=== PATIENT | male | born 1960 | race Caucasian/White ===

== ENCOUNTER → 2016-10-22 | Outpatient (CLI) | payer BC | LOC: LAB.O 07:57 | PROVIDERS: ATTEND Internal Medicine Nephrology | DX: N18.3 Chronic kidney disease, stage 3 (moderate) (principal); I95.9 Hypotension, unspecified; N17.9 Acute kidney failure, unspecified; E78.5 Hyperlipidemia, unspecified ==

== ENCOUNTER → 2016-11-16 | Outpatient (CLI) | payer BC | END | disposition home or self-care (01) | LOC: LAB.O 07:07 | PROVIDERS: ATTEND Internal Medicine Nephrology | DX: N18.3 Chronic kidney disease, stage 3 (moderate) (principal); E78.5 Hyperlipidemia, unspecified; M10.9 Gout, unspecified ==

== ENCOUNTER → 2017-04-18 | Outpatient (CLI) | payer BC | LOC: LAB.O 07:10 | PROVIDERS: ATTEND Internal Medicine Nephrology | DX: N18.3 Chronic kidney disease, stage 3 (moderate) (principal); E78.5 Hyperlipidemia, unspecified; M10.9 Gout, unspecified ==

== ENCOUNTER → 2017-07-05 | Outpatient (CLI) | payer BC | END | disposition home or self-care (01) | LOC: LAB.O 08:58 | PROVIDERS: ATTEND Specialist | DX: I12.9 Hypertensive chronic kidney disease with stage 1 through stage 4 chronic kidney disease, or unspecified chronic kidney disease (principal); N18.2 Chronic kidney disease, stage 2 (mild); E78.5 Hyperlipidemia, unspecified; M10.9 Gout, unspecified ==

== ENCOUNTER → 2017-10-23 | Outpatient (CLI) | payer BC | LOC: LAB.O 08:11 | PROVIDERS: ATTEND Internal Medicine Nephrology | DX: M10.9 Gout, unspecified (principal); N18.3 Chronic kidney disease, stage 3 (moderate); E78.5 Hyperlipidemia, unspecified ==

== ENCOUNTER → 2017-12-19 | Outpatient (CLI) | payer BC | LOC: LAB.O 07:07 | PROVIDERS: ATTEND Internal Medicine Nephrology | DX: N18.3 Chronic kidney disease, stage 3 (moderate) (principal); E78.5 Hyperlipidemia, unspecified; M10.9 Gout, unspecified; I95.9 Hypotension, unspecified ==

== ENCOUNTER 2018-02-11 22:19 | Inpatient (IN) | payer BC ==
--- NOTE | 2018-02-11 23:01 | ED.PDOC ---
History of Present Illness - General Chief Complaint: Blood Pressure Problem Stated Complaint: low blood pressure Time Seen by Provider: 02/11/18 22:57 Source: patient, Vital Signs reviewed Exam Limitations: no limitations Additional Information: 57 YEAR OLD PRESENTS WITH THE FOLLOWING PROBLEMS SEVERE CRAMPING OF HIS EXTREMITIES HE NOTED HIS BLOOD PRESSURE HAD DROPPED TO THE 70S HE HAS BEEN DRINKING FLUIDS HE HAS BEEN VOIDING NO VOMITNG OR DIARRHEA HE HAS KNOWN HISTORY OF HYPERTENSION ON LISINOPRIL AND CARVIDALOL HE HAS HAD ACUTE KIDNEY INJURY IN 2007 WHERE HIS CR WENAT UP TO 14 HIS BASELINE IS 1.6 - History of Present Illness Timing/Duration: 4-6 hours Severity: moderate Improving Factors: nothing Worsening Factors: nothing Associated Symptoms: denies symptoms Allergies/Adverse Reactions: Allergies Penicillins Allergy (Verified 03/11/15 16:39) Home Medications: Ambulatory Orders Amlodipine Besylate [Norvasc] 10 mg PO BEDTIME 03/11/15 Carvedilol 6.25 mg PO BID 03/11/15 Hctz 25 mg/Triamterene 37.5 mg [Maxzide-25] 1 ea PO DAILY 03/11/15 Lisinopril 40 mg PO BEDTIME 03/11/15 Pantoprazole Tablet [Protonix] 40 mg PO BEDTIME 03/11/15 Rosuvastatin Calcium [Crestor] 40 mg PO DAILY 03/11/15 Review of Systems - Review of Systems Constitutional: States: no symptoms reported, see HPI EENTM: States: no symptoms reported Respiratory: States: no symptoms reported Cardiology: States: no symptoms reported Gastrointestinal/Abdominal: States: no symptoms reported Genitourinary: States: no symptoms reported Musculoskeletal: States: no symptoms reported Skin: States: no symptoms reported Neurological: States: no symptoms reported Endocrine: States: no symptoms reported Hematologic/Lymphatic: States: no symptoms reported Past Medical History (General) - Patient Medical History Hx Seizures: No Hx Stroke: No Hx Dementia: No Hx Asthma: No Hx of COPD: No Hx Cardiac Disorders: No Hx Congestive Heart Failure: No Hx Pacemaker: No Hx Hypertension: Yes Hx Thyroid Disease: No Hx Diabetes: No Hx Renal Disease: Yes - left kidney failing at 17-18% Hx Cancer: No Hx of HIV: No Hx Hepatitis C: No Hx MRSA: No Surgical History: tonsillectomy - Vaccination History Hx Tetanus, Diphtheria Vaccination: No Hx Influenza Vaccination: No Hx Pneumococcal Vaccination: No - Social History Hx Tobacco Use: Yes Hx Alcohol Use: Yes Hx Substance Use: No Hx Substance Use Treatment: No Hx Depression: No Hx Physical Abuse: No Hx Emotional Abuse: No Hx Suspected Abuse: No - Female History Patient : No Family Medical History - Family History Father Hx Family Hypertension: Yes - Mother Hx Family Stroke: Yes - Mother had several TIA's Hx Family Cancer: Yes - father of Melonoma Physical Exam - Physical Exam General Appearance: Alert, Comfortable Eye Exam: bilateral normal Ears, Nose, Throat: hearing grossly normal, normal ENT inspection, normal pharynx Neck: non-tender, full range of motion, supple Cardiovascular/Chest: normal peripheral pulses, regular rate, rhythm, no edema, no gallop Peripheral Pulses: radial,right: 2+, radial,left: 2+, femoral,right: 2+, femoral ,left: 2+, popliteal,right: 2+, popliteal,left: 2+ Gastrointestinal/Abdominal: normal bowel sounds, non tender, soft, no organomegaly, no pulsatile mass Back Exam: normal inspection, no CVA tenderness, no vertebral tenderness Extremity: normal range of motion, non-tender, normal inspection 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, no motor/sensory deficits, alert, normal mood/affect DTR: 3+: Biceps, left, Biceps, right, Triceps, left, Triceps, right, Brachioradialis, left, Brachioradialis, right, Achilles, left, Achilles, right, Patellar, left, Patellar, right Skin Exam: normal color Progress - Results/Orders Results/Orders: Laboratory Tests 02/11/18 02/11/18 02/11/18 23:15 23:15 23:15 WBC 6.3 RBC 4.66 L Hgb 14.9 Hct 43.9 MCV 94.2 H MCH 31.9 H MCHC 34.1 RDW 13.5 Plt Count 210 MPV 7.6 Absolute Neuts (auto) 4.10 Absolute Lymphs (auto) 0.90 L Absolute Monos (auto) 1.20 H Absolute Eos (auto) 0.00 Absolute Basos (auto) 0.00 Neutrophils % 66.0 Lymphocytes % 14.4 L Monocytes % 18.8 H Eosinophils % 0.7 L Basophils % 0.1 Sodium 130 L Potassium 3.8 Chloride 93 L Carbon Dioxide 22 Anion Gap 18.8 H BUN 55 H Creatinine 3.95 H BUN/Creatinine Ratio 13.9 Random Glucose 93 Serum Osmolality 275.6 Calcium 9.6 Total Bilirubin 0.5 AST 47 H ALT 20 Alkaline Phosphatase 50 Serum Total Protein 7.9 Albumin 4.7 Globulin 3.2 Albumin/Globulin Ratio 1.5 Urine Color Yellow Urine Appearance Clear Urine pH 5.0 Ur Specific [place] 1.015 Urine Protein 30 Urine Glucose (UA) Negative Urine Ketones Trace Urine Blood Small H Urine Nitrite Negative Urine Bilirubin Small H Urine Urobilinogen 0.2 Ur Leukocyte Esterase Negative Urine RBC 0-1 Urine WBC 3-5 H Ur Epithelial Cells 0 Urine Bacteria 1+ Hyaline Casts 5-10 Fine Granular Casts 1-3 Urine Mucus Small Departure - Departure Clinical Impression: Dehydration, Hypertension, Acute kidney injury (nontraumatic) Time of Disposition: 23:48 - DISCUSSED WITH [employer] [facility] WORKER WILL ADMIT Disposition: Admit Patient Departure Forms: ED Discharge - Pt. Copy, Patient Portal Self Enrollment Instructions: DI for High Blood Pressure Referrals: DONELL SALGADO MD [Primary Care Provider] - 1-2 Weeks Home Medications: Ambulatory Orders Amlodipine Besylate [Norvasc] 10 mg PO BEDTIME 03/11/15 Carvedilol 6.25 mg PO BID 03/11/15 Hctz 25 mg/Triamterene 37.5 mg [Maxzide-25] 1 ea PO DAILY 03/11/15 Lisinopril 40 mg PO BEDTIME 03/11/15 Pantoprazole Tablet [Protonix] 40 mg PO BEDTIME 03/11/15 Rosuvastatin Calcium [Crestor] 40 mg PO DAILY 03/11/15
[2018-02-11] MEDS ORDERED: SODIUM CHLORIDE 0.9% 1000ML 1,000 ML IVS ONE (23:04)
--- NOTE | 2018-02-12 00:12 | HP ---
SUPERVISING PHYSICIAN: Nicolas Gama MD CHIEF COMPLAINT: Dehydration, leg cramping. HISTORY OF PRESENT ILLNESS: This is a 57-year-old male patient who works for the [employer]. 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 He gets dehydrated easily and does have some renal insufficiency with a baseline creatinine of 1.6. He came to the Emergency Room due to severe cramping of the extremities. His blood pressure prior to coming to the Emergency Room was systolic blood pressure in the 70s. He had been drinking fluids and there were no complaints of nausea and vomiting, but he continued to have dry mouth and difficulty walking due to the cramping. In the Emergency Room, his initial WBCs were 6.3 with hemoglobin 14.9 and hematocrit 43.9. Sodium 130, potassium 3.8, chloride 93, carbon dioxide 22, BUN 55, creatinine 3.95. AST slightly elevated at 47. Urinalysis showed small amount of urine blood, small amount of urine bilirubin and 3 to 5 urine WBCs. He was started on fluids and admitted to the hospital. PAST MEDICAL HISTORY: 1. Hypertension. 2. Gastroesophageal reflux disease. 3. Hiatal hernia. 4. Chronic renal insufficiency. Left kidney is functioning at about 17%. 5. Hypothyroidism. 6. B12 deficiency. PAST SURGICAL HISTORY: 1. Tonsillectomy. OUTPATIENT MEDICATIONS: 1. Carvedilol. 2. Vitamin D3. 3. Lisinopril. 4. Pantoprazole. 5. Crestor. ALLERGIES: PENICILLIN. ADVERSE REACTION TO AMLODIPINE. SOCIAL HISTORY: He lives in [place]. He denies tobacco use. He drinks alcohol on a social basis and denies any illicit drug use. REVIEW OF SYSTEMS: GENERAL: Denies for fever, fatigue or weight changes. HEENT: Denies sinus symptoms, ear pain, vision disturbances or sore throat. He does complain of a dry mount that is improved. RESPIRATORY: Denies for wheezing, coughing or shortness of breath. CARDIAC: Denies for chest pain, palpitations or tachycardia. GASTROINTESTINAL: Denies nausea, vomiting, diarrhea, constipation or abdominal pain. GENITOURINARY: Denies hematuria, dysuria or polyuria. MUSCULOSKELETAL: On admission to the Emergency Room , he had severe leg cramping , but those have resolved with fluids. NEUROLOGIC: Denies headache, dizziness or seizures. PHYSICAL EXAMINATION: VITAL SIGNS: Afebrile. Heart rate 68. Blood pressure 106/63. Respiratory rate 16. O2 saturation 96% on room air. GENERAL: This is a 57-year-old male patient who is lying in his hospital bed. He is in no acute distress. HEENT: Normocephalic, atraumatic. Pupils are equal and reactive. Oropharynx is moist. NECK: Supple without mass. RESPIRATORY: Essentially clear to auscultation bilaterally. CHEST: There is equal rise and fall of the chest with inspiration and expiration. CARDIOVASCULAR: Regular rate and rhythm. GASTROINTESTINAL: Abdomen is soft, nondistended, nontender. Bowel sounds are positive. EXTREMITIES: No cyanosis, clubbing or edema. NEUROLOGIC: Awake, alert and oriented times three. LABORATORY: Labs are as per history of present illness. ASSESSMENT: 1. Acute kidney injury on chronic renal insufficiency. 2. Dehydration. 3. Hypertension. 4. Hyperlipidemia. 5. Gastroesophageal reflux disease. 6. Hypothyroidism. PLAN: We will admit the patient to the hospital. He has received several liters of fluids and he is now on maintenance fluids. His creatinine is still quite elevated at 2.4. I will repeat his labs in the morning. I have also given him some magnesium supplementation. I spoke to the patient's revolving inventory clerk , Dr. Aury Irving in [place] at the [facility] and he agreed with me that the patient's lisinopril should probably be changed. Initially I was going to change him to amlodipine, but he has had an adverse reaction to that in the past, so I am going to start him on an ARB and we will monitor his blood pressure overnight. We will continue with fluids. I will check his thyroid and we will continue to monitor the patient closely and follow as needed. Dr. Gama is the collaborating physician and available for consultation. #[id number] [facility]
[2018-02-12] MEDS ORDERED: SODIUM CHLORIDE 0.9% (FLUSH) 10 ML SYG IV PRN (01:19)
[2018-02-12] MEDS ORDERED: ACETAMINOPHEN 325 MG TAB PO PRN (01:19)
[2018-02-12] MEDS ORDERED: SODIUM CHLORIDE 0.9% 1000ML 1,000 ML IVS ONE (01:26)
[2018-02-12] MEDS ORDERED: IV SET AND CAP CHANGE INJ INJ SCH (01:30)
[2018-02-12] MEDS: KCL 20 MEQ/NS 1,000 ML IVS PRN ×2 (03:10→09:57)
[2018-02-12] MEDS ORDERED: LISINOPRIL 10 MG TAB PO SCH (09:00)
[2018-02-12] MEDS ORDERED: CHOLECALCIFEROL 400 UNIT PO SCH (09:00)
[2018-02-12] MEDS ORDERED: NON-FORMULARY MEDICATION 1 EA MIS (Rosuvastatin Calcium [Crestor] 40 MG) PO SCH (09:00)
[2018-02-12] MEDS: CARVEDILOL 3.125 MG TAB PO SCH (09:44)
[2018-02-12] MEDS: CHOLECALCIFEROL 2,000 IU TAB PO SCH (09:44)
[2018-02-12] MEDS ORDERED: amLODIPine BESYLATE 5 MG TAB PO SCH (11:00)
[2018-02-12] MEDS ORDERED: MAGNESIUM SULFATE PREMIX 2GM 2 GM in PREMIX BAG 1 BAG IVPB ONE (11:00)
[2018-02-12] MEDS ORDERED: MAGNESIUM SULFATE PREMIX 2GM 50 ML IVPB ONE (11:27)
[2018-02-12] MEDS: SODIUM CHLORIDE 0.45% 1000ML 1,000 ML IVS PRN ×2 (11:31→20:14)
[2018-02-12] MEDS: VALSARTAN 80 MG TAB PO SCH (11:35)
[2018-02-12] MEDS ORDERED: ATORVASTATIN 20 MG TAB PO SCH (21:00)
[2018-02-12] MEDS ORDERED: PANTOPRAZOLE SODIUM TAB 40 MG PO SCH (21:00)
[2018-02-13] MEDS: SODIUM CHLORIDE 0.45% 1000ML 1,000 ML IVS PRN (05:08)
[2018-02-13] MEDS: CHOLECALCIFEROL 2,000 IU TAB PO SCH (09:34)
[2018-02-13] MEDS: VALSARTAN 80 MG TAB PO SCH (09:34)
[2018-02-13] MEDS: CARVEDILOL 3.125 MG TAB PO SCH (09:34)
--- NOTE | 2018-02-13 09:49 | DS ---
SUPERVISING PHYSICIAN: Nicolas Gama MD DISCHARGE DIAGNOSIS: 1. Acute kidney injury on chronic renal insufficiency. 2. Dehydration. 3. Hypertension. 4. Hyperlipidemia. 5. Gastroesophageal reflux disease. 6. Hypothyroidism. HISTORY OF PRESENT ILLNESS: This is a 57-year-old male patient who works for the [employer]. 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 He gets dehydrated easily as well as frequently and does have some renal insufficiency with a baseline creatinine of about 1.6. He came to the Emergency Room due to severe cramping of the extremities. His blood pressure prior to coming to the Emergency Room was systolic blood pressure in the 70s. He had been drinking fluids and there were no complaints of nausea and vomiting, but he continued to have dry mouth and difficulty walking due to the cramping. In the Emergency Room, his initial WBCs were 6.3 with hemoglobin 14.9 and hematocrit 43.9. Sodium 130, potassium 3.8, chloride 93, carbon dioxide 22, BUN 55, creatinine 3.95. AST slightly elevated at 47. Urinalysis showed small amount of urine blood, small amount of urine bilirubin and 3 to 5 urine WBCs. He was started on fluids and admitted to the hospital. HOSPITAL COURSE: He was given multiple liters of fluids as well as put on maintenance fluids. I spoke to his solid waste manager, Dr. Irving in [place] yesterday. He and I both agreed that the patient should be taken off of his CHRISTOPHER inhibitor and changed to another antihypertensive. He also said he would like his creatinine to be less than 2 prior to discharge. His second creatinine yesterday was 2.43. He also had a magnesium yesterday of 1.6. His magnesium was replaced. His lisinopril was discontinued and he was started on Diovan. His vital signs overnight showed a blood pressure of 133/77 and 120/82. He has been afebrile. His lab this morning shows normal electrolytes with magnesium of 2. BUN 31, creatinine 1.52. His liver enzymes are within normal limits at this time. TSH is 4.63. He is presently on no thyroid medications. He will be discharged today in stable condition. DISCHARGE PLAN: The patient will be discharged home. He is to resume his previous activity as tolerated, resume his previous diet. He is also to resume his previous medications with the exception of his lisinopril is to be discontinued and I will send him in a new prescription for Diovan. He is to followup with his primary care physician, Dr. Josias Celis in [place] in the next 1 to 2 weeks and he is also to followup with his solid waste manager, Dr. Irving, within the next month or so. He is to return to the hospital for any other problems or complications. DISCHARGE MEDICATIONS: 1. Carvedilol. 2. Crestor. 3. Protonix. 4. Vitamin D. 5. Diovan. Dr. Gama is the collaborating physician and available for consultation. #[id number] [facility] CENTERLuis
[2018-02-13 09:55] VITALS: BP 126/86; TEMP 97.4; O2SAT 99
== END 2018-02-13 10:30 | disposition home or self-care (01) | DRG 684 ==
LOC: ER 22:19 → OBSVTOIN 02-12 00:11 → MS 02-12 00:11
PROVIDERS: ADMIT Nurse Practitioner Acute Care; ATTEND Nurse Practitioner Acute Care
DX: N17.9 Acute kidney failure, unspecified (principal); E86.0 Dehydration; I12.9 Hypertensive chronic kidney disease with stage 1 through stage 4 chronic kidney disease, or unspecified chronic kidney disease; N18.9 Chronic kidney disease, unspecified; I10 Essential (primary) hypertension; E78.5 Hyperlipidemia, unspecified; K21.9 Gastro-esophageal reflux disease without esophagitis; E03.9 Hypothyroidism, unspecified; K44.9 Diaphragmatic hernia without obstruction or gangrene; E53.8 Deficiency of other specified B group vitamins; Z88.0 Allergy status to penicillin; Z79.899 Other long term (current) drug therapy

== ENCOUNTER → 2018-04-14 | Outpatient (CLI) | payer BC | LOC: GMAJ 11:44 | PROVIDERS: ATTEND Family Medicine | DX: N18.2 Chronic kidney disease, stage 2 (mild) (principal) ==

== ENCOUNTER → 2018-08-07 | Outpatient (CLI) | payer BC | LOC: GMAJ 11:15 | PROVIDERS: ATTEND Family Medicine | DX: Z12.5 Encounter for screening for malignant neoplasm of prostate (principal) ==

== ENCOUNTER → 2018-08-13 | Outpatient (CLI) | payer BC | LOC: GMAJ 12:05 | PROVIDERS: ATTEND Family Medicine | DX: R94.5 Abnormal results of liver function studies (principal) ==